=== PATIENT | male | born 2000 ===

== ENCOUNTER 2019-07-02 16:58 | Inpatient (IN) | payer BC ==
[~2019-07-02] VITALS: Ht 172.7 cm; Wt 68.7 kg
[2019-07-02 18:47] LABS: BASOPHILS % (AUTO) 0.2 % (0.0-2.0); EOSINOPHILS % (AUTO) 0.7 % (1.0-6.0); HEMATOCRIT 48.5 % (41-53); HEMOGLOBIN 16.6 g/dL (13.5-17.5); LYMPHOCYTES # (AUTO) 1.4 K/uL (1.0-4.8); LYMPHOCYTES % (AUTO) 10.6 % (22.0-44.0); MEAN CORPUSCULAR HGB CONC 34.3 G/dL (31.0-37.0); MEAN CORPUSCULAR VOLUME 97 fL (80-100); MONOCYTES # (AUTO) 0.8 K/uL (0.1-1.0); MONOCYTES % (AUTO) 5.9 % (2.0-9.0); NEUTROPHILS # (AUTO) 11.1 K/uL (1.8-7.7); NEUTROPHILS % (AUTO) 82.6 % (40.0-70.0); PLATELET COUNT (AUTO) 384 K/uL (150-450); RED BLOOD CELL COUNT(AUTO) 5.03 MIL/uL (4.50-5.90); RED CELL DISTRIBUTION WIDTH 13.3 % (11.5-14.5)
[2019-07-02 18:53] LABS: ANION GAP 7 mmol/L (8-16); CALCIUM, TOTAL 9.6 mg/dL (8.8-10.5); CARBON DIOXIDE 29 mmol/L (22-29); CHLORIDE 103 mmol/L (98-107); CREATININE 0.95 mg/dL (0.60-1.30); GLOMERULAR FILTR. RATE CALC > 60 mL/min (>60); GLUCOSE,RANDOM 85 mg/dL (70-110); POTASSIUM 3.7 mmol/L (3.5-5.1); SODIUM SERUM 139 mmol/L (136-145); UREA NITROGEN, BLOOD 9 mg/dL (7-18)
[2019-07-02 18:59] LABS: ALANINE AMINOTRANSFERASE 27 U/L (12-78); ALBUMIN 4.4 g/dL (3.4-5.0); ALKALINE PHOSPHATASE 60 U/L (46-116); ASPARTATE AMINOTRANSFERASE 19 U/L (15-37); BILIRUBIN,TOTAL 0.7 mg/dL (0.1-1.0); TOTAL PROTEIN, SERUM 8.3 g/dL (6.4-8.2)
[2019-07-02 19:01] LABS: ACETAMINOPHEN < 2 mcg/mL (10-30)
[2019-07-02 19:06] LABS: SALICYLATE < 2.8 mg/dL (2.8-20.0)
[2019-07-02] MEDS: ZOLPIDEM TARTRATE 10 MG TABLET PO PRN (20:25)
[2019-07-02] MEDS: LORazepam 2 MG TABLET PO PRN (20:25)
[2019-07-02] MEDS ORDERED: ACETAMINOPHEN 325 MG TABLET PO PRN (22:15)
[2019-07-02] MEDS ORDERED: IBUPROFEN 400 MG TABLET PO PRN (22:15)
[2019-07-02] MEDS ORDERED: ONDANSETRON HCL 4 MG TABLET PO PRN (22:15)
[2019-07-02] MEDS ORDERED: LOPERAMIDE HCL 2 MG CAPSULE PO PRN (22:15)
[2019-07-02] MEDS ORDERED: ALBUTEROL SULFATE HFA 90 MCG/PUFF 8 GM INHALER IH PRN (22:15)
[2019-07-02] MEDS ORDERED: DOCUSATE SODIUM 100 MG CAPSULE PO PRN (22:15)
[2019-07-02] MEDS ORDERED: MAGNESIUM HYDROXIDE SUSPENSION 30 ML UDCUP PO PRN (22:15)
[2019-07-02] MEDS ORDERED: MAG HYDROX/AL HYDROX/SIMETH ES 30 ML SUSPENSION UDCUP PO PRN (22:15)
[2019-07-02] MEDS ORDERED: PETROLATUM,WHITE 28 GM JELLY TP PRN (22:15)
[2019-07-02] MEDS ORDERED: GuaiFENesin/D-METHORPHAN [SUGAR-FREE] 200-20MG/10 ML SYRUP UDCUP PO PRN (22:15)
[2019-07-02] MEDS ORDERED: NICOTINE 14 MG/24 HOUR PATCH TD PRN (22:15)
[2019-07-02] MEDS ORDERED: CloNIDine HCL 0.1 MG TABLET PO PRN (22:15)
[2019-07-03] MEDS ORDERED: INFLUENZA VIRUS VACCINE QVS 2019-20 (3YR+)/PF 60 MCG/0.5 ML SYRINGE IM ONE (00:30)
[2019-07-03] MEDS: LORazepam 2 MG TABLET PO PRN ×4 (07:16→23:58)
[2019-07-03 08:26] LABS: CHOL/HDL RATIO 2.7 (4.2-7.3)
[2019-07-03 08:28] VITALS: BP 119/61
[2019-07-03] MEDS ORDERED: MAG HYDROX/AL HYDROX/SIMETH ES 30 ML SUSPENSION UDCUP PO PRN (09:00)
[2019-07-03] MEDS ORDERED: PETROLATUM,WHITE 28 GM JELLY TP PRN (09:00)
[2019-07-03] MEDS ORDERED: CloNIDine HCL 0.1 MG TABLET PO PRN (09:00)
[2019-07-03] MEDS ORDERED: ACETAMINOPHEN 325 MG TABLET PO PRN (09:00)
[2019-07-03] MEDS ORDERED: GuaiFENesin/D-METHORPHAN [SUGAR-FREE] 200-20MG/10 ML SYRUP UDCUP PO PRN (09:00)
[2019-07-03] MEDS ORDERED: MAGNESIUM HYDROXIDE SUSPENSION 30 ML UDCUP PO PRN (09:00)
[2019-07-03] MEDS ORDERED: IBUPROFEN 400 MG TABLET PO PRN (09:00)
[2019-07-03] MEDS ORDERED: ALBUTEROL SULFATE HFA 90 MCG/PUFF 8 GM INHALER IH PRN (09:00)
[2019-07-03] MEDS ORDERED: ONDANSETRON HCL 4 MG TABLET PO PRN (09:00)
[2019-07-03] MEDS ORDERED: LOPERAMIDE HCL 2 MG CAPSULE PO PRN (09:00)
[2019-07-03] MEDS ORDERED: DOCUSATE SODIUM 100 MG CAPSULE PO PRN (09:00)
[2019-07-03] MEDS ORDERED: LORazepam 2 MG/ML VIAL ONE (10:38)
[2019-07-03] MEDS ORDERED: HALOPERIDOL LACTATE 5 MG/ML VIAL ONE (10:39)
[2019-07-03] MEDS ORDERED: DiphenhydrAMINE HCL 50 MG/ML VIAL ONE (10:39)
[2019-07-03] MEDS: NICOTINE 14 MG/24 HOUR PATCH TD PRN (14:56)
[2019-07-03 16:06] VITALS: BP 137/75
[2019-07-03] MEDS: ZOLPIDEM TARTRATE 10 MG TABLET PO PRN (20:24)
[2019-07-03] MEDS: HALOPERIDOL 5 MG TABLET PO PRN (23:58)
[2019-07-04 01:25] VITALS: BP 139/78
[2019-07-04 07:48] LABS: BASOPHILS % (AUTO) 0.6 % (0.0-2.0); EOSINOPHILS % (AUTO) 2.3 % (1.0-6.0); HEMOGLOBIN 16.5 g/dL (13.5-17.5); LYMPHOCYTES # (AUTO) 3.1 K/uL (1.0-4.8); LYMPHOCYTES % (AUTO) 37.4 % (22.0-44.0); MEAN CORPUSCULAR HEMOGLOBIN 32.8 pg (26.0-34.0); MEAN CORPUSCULAR HGB CONC 33.7 G/dL (31.0-37.0); MEAN CORPUSCULAR VOLUME 97 fL (80-100); MONOCYTES # (AUTO) 0.8 K/uL (0.1-1.0); NEUTROPHILS # (AUTO) 4.2 K/uL (1.8-7.7); NEUTROPHILS % (AUTO) 50.7 % (40.0-70.0); PLATELET COUNT (AUTO) 361 K/uL (150-450); RED BLOOD CELL COUNT(AUTO) 5.03 MIL/uL (4.50-5.90); RED CELL DISTRIBUTION WIDTH 13.3 % (11.5-14.5)
[2019-07-04 08:00] LABS: HEMOGLOBIN A1C 4.9 % (3.8-5.6)
[2019-07-04 08:10] LABS: ALANINE AMINOTRANSFERASE 26 U/L (12-78); ALKALINE PHOSPHATASE 56 U/L (46-116); ANION GAP 7 mmol/L (8-16); ASPARTATE AMINOTRANSFERASE 14 U/L (15-37); BILIRUBIN,TOTAL 0.5 mg/dL (0.1-1.0); CARBON DIOXIDE 30 mmol/L (22-29); CHLORIDE 103 mmol/L (98-107); CHOL/HDL RATIO 3.1 (4.2-7.3); CHOLESTEROL 152 mg/dL (131-200); CREATININE 0.93 mg/dL (0.60-1.30); GLOMERULAR FILTR. RATE CALC > 60 mL/min (>60); GLUCOSE,RANDOM 87 mg/dL (70-110); HDL CHOLESTEROL 49 mg/dL (40-60); LDL CHOL (CALC.) 88 mg/dL (0-130); POTASSIUM 3.9 mmol/L (3.5-5.1); SODIUM SERUM 140 mmol/L (136-145); THYROID STIMULATING HORMONE 1.72 uIU/mL (0.36-3.74); TOTAL PROTEIN, SERUM 7.9 g/dL (6.4-8.2); TRIGLYCERIDES 76 mg/dL (15-150); UREA NITROGEN, BLOOD 9 mg/dL (7-18)
[2019-07-04 09:08] VITALS: BP 123/61
[2019-07-04] MEDS: NICOTINE 14 MG/24 HOUR PATCH TD PRN (12:13)
[2019-07-04] MEDS: LORazepam 2 MG TABLET PO PRN ×2 (15:46→20:03)
[2019-07-04 16:09] VITALS: BP 112/67
[2019-07-04] MEDS: ZOLPIDEM TARTRATE 10 MG TABLET PO PRN (21:04)
[2019-07-05 06:01] VITALS: BP 124/77
[2019-07-05] MEDS: BuPROPion HCL XL 150 MG ER TABLET PO SCH (08:07)
[2019-07-05] MEDS: NICOTINE 14 MG/24 HOUR PATCH TD PRN (08:07)
[2019-07-05 08:30] VITALS: BP 110/64
[2019-07-05] MEDS: LORazepam 2 MG TABLET PO PRN ×3 (12:05→21:26)
[2019-07-05 16:08] VITALS: BP 124/77
[2019-07-05] MEDS: ZOLPIDEM TARTRATE 10 MG TABLET PO PRN (20:07)
[2019-07-05] MEDS: HALOPERIDOL 5 MG TABLET PO PRN (23:49)
[2019-07-06 00:34] VITALS: BP 133/84
[2019-07-06] MEDS: BuPROPion HCL XL 150 MG ER TABLET PO SCH (08:56)
[2019-07-06 09:01] VITALS: BP 112/63
[2019-07-06] MEDS: NICOTINE 14 MG/24 HOUR PATCH TD PRN (09:30)
[2019-07-06] MEDS ORDERED: BUPR75 PO (12:07)
[2019-07-06] MEDS ORDERED: BUPR-93 PO (12:08)
== END 2019-07-06 13:35 | disposition home or self-care (01) | DRG 885 ==
LOC: EMS 17:00 → B3A 20:20 → B2S 07-03 20:48
PROVIDERS: ADMIT Psychiatry & Neurology Child & Adolescent Psychiatry; ATTEND Psychiatry & Neurology Child & Adolescent Psychiatry
DX: F33.1 Major depressive disorder, recurrent, moderate (principal); R45.851 Suicidal ideations; D72.829 Elevated white blood cell count, unspecified; F10.10 Alcohol abuse, uncomplicated; F41.9 Anxiety disorder, unspecified; F19.10 Other psychoactive substance abuse, uncomplicated; R45.850 Homicidal ideations; Z91.5 Personal history of self-harm
CPT/HCPCS: 83036; 84443; 93005; G0480; G0481; J1200; J1630; J2060